=== PATIENT | female | born 2000 | race Caucasian/White ===

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

== ENCOUNTER → 2018-06-06 | Outpatient (REF) | payer OTHER ==
[2018-06-06 21:59] LABS: CHLAMYDIA DNA AMPLIFICATION NEGATIVE (NEGATIVE); GC DNA AMPLIFICATION NEGATIVE (NEGATIVE)
== END ==
LOC: M LAB REF 10:13
DX: R10.30 Lower abdominal pain, unspecified (principal)
CPT/HCPCS: 87186

== ENCOUNTER → 2018-06-10 | Outpatient (CLI) | payer OTHER | LOC: M RAD 13:42 | DX: R10.30 Lower abdominal pain, unspecified (principal) | CPT/HCPCS: 76856 ==

== ENCOUNTER 2018-10-25 17:09 | Emergency (ER) | payer OTHER ==
[~2018-10-25] VITALS: Ht 170.2 cm; Wt 90.9 kg
[2018-10-25] MEDS ORDERED: NS 1,000 ML IV ONE (18:45)
[2018-10-25] MEDS ORDERED: ONDANSETRON 4MG/2ML VIAL (J2405) IV ONE (18:45)
[2018-10-25] MEDS: MORPHINE 2 MG/ML 1ML SYRINGE (J2270) IV PRN ×2 (18:51→19:32)
[2018-10-25 18:54] LABS: BASO % 0.2 % (0.0-1.0); EOS # 0.2 10^3/uL (0.0-0.50); EOS % 1.2 % (0.0-3.0); HEMATOCRIT 43.8 % (36.0-47.0); HEMOGLOBIN 14.3 g/dl (12.0-15.5); LYMPH # 2.5 10^3/uL (1.5-6.5); LYMPH % 16.3 % (24.0-44.0); MEAN CORPUSCULAR HEMOGLOBIN 28.9 pg (27.0-33.0); MEAN CORPUSCULAR HGB CONC 32.6 g/dl (32.0-36.5); MEAN CORPUSCULAR VOLUME 88.7 fl (80.0-96.0); MONO # 1.2 10^3/uL (0.0-0.8); MONO % 7.6 % (0.0-5.0); NEUTROPHILS # 11.6 10^3/uL (1.8-7.7); NEUTROPHILS % 74.2 % (36.0-66.0); PLATELET COUNT, AUTOMATED 270 10^3/uL (150-450); RED BLOOD COUNT 4.94 10^6/uL (4.00-5.40); WHITE BLOOD COUNT 15.6 10^3/uL (4.0-10.0)
[2018-10-25 19:15] LABS: BLOOD UREA NITROGEN 13 MG/DL (7-18); CALCIUM LEVEL 8.9 MG/DL (8.5-10.1); CARBON DIOXIDE LEVEL 25 MEQ/L (21-32); CHLORIDE LEVEL 106 MEQ/L (98-107); GLUCOSE, FASTING 73 MG/DL (70-100); POTASSIUM SERUM 3.6 MEQ/L (3.5-5.1); SODIUM LEVEL 139 MEQ/L (136-145)
[2018-10-25] MEDS ORDERED: ISOVUE-370 76% 100ML VIAL (Q9967) As Ordered ONE (19:30)
[2018-10-25 19:54] VITALS: BP 119/75
--- NOTE | 2018-10-25 19:54 | REP ---
Clinical: Right lower quadrant pain. Technique: Axial contrast enhanced images from the lung bases to the pubic symphysis using 100 ml Isovue 370 intravenous contrast material with coronal and sagittal re-formations. Findings: Lung bases are clear. Visualized heart and pericardium normal. Liver, spleen, pancreas, gallbladder, bilateral adrenal glands and kidneys are normal. The enteric system is without obstruction or acute inflammatory process. Normal terminal ileum and appendix are identified in the right lower quadrant. Pelvis demonstrates normal bladder and age-appropriate uterus/adnexa. No ascites. No free air. No adenopathy. Abdominal aorta without aneurysm. Musculoskeletal structures are intact without focal osseous abnormality. Impression: No acute abdominopelvic pathology appreciated. Normal right lower quadrant and appendix. No free fluid, focal adenopathy, or ascites. Electronically Signed by Gaurav Hu MD 10/25/2018 07:45 P
== END 2018-10-25 20:12 | disposition home or self-care (01) ==
LOC: M ED 17:09
DX: N94.0 Mittelschmerz (principal)
CPT/HCPCS: 74177; 80048; 81001; 81025; 83605; 85025; 87086; 96361; 96374; 96375; 96376; 99284; J2270; J2405; Q9967

== ENCOUNTER → 2018-10-25 | Outpatient (REF) | payer OTHER ==
[~2018-10-25] MED LIST: DOXY100C37 PO; IBUP-1022 PO
== END ==
LOC: M LAB REF 18:51
PROVIDERS: ATTEND Physician Assistant Medical
DX: R10.9 Unspecified abdominal pain (principal)

== ENCOUNTER → 2018-11-29 | Outpatient (REF) | payer OTHER ==
[2018-11-29 19:08] LABS: CHLAMYDIA DNA AMPLIFICATION NEGATIVE (NEGATIVE); GC DNA AMPLIFICATION NEGATIVE (NEGATIVE)
== END ==
LOC: M SFHCWAGY 16:54
PROVIDERS: ATTEND Nurse Practitioner Women's Health
DX: Z11.3 Encounter for screening for infections with a predominantly sexual mode of transmission (principal)

== ENCOUNTER → 2019-06-17 | Outpatient (REF) | payer OTHER | LOC: M LAB REF 19:08 | PROVIDERS: ATTEND Physician Assistant Medical | DX: R35.0 Frequency of micturition (principal); R39.15 Urgency of urination ==

== ENCOUNTER → 2019-06-30 | Outpatient (REF) | payer OTHER ==
[2019-06-30 13:51] LABS: URINE PREG TEST NEGATIVE (NEGATIVE)
[2019-06-30 14:05] LABS: APPEARANCE, URINE CLEAR (CLEAR); BACTERIA, URINE AUTO NEGATIVE (NEGATIVE); BILIRUBIN, URINE AUTO NEGATIVE (NEGATIVE); BLOOD, URINE BLOOD NEGATIVE (NEGATIVE); COLOR, URINE YELLOW (YELLOW); GLUCOSE, URINE (UA) AUTO NEGATIVE (NEGATIVE); KETONE, URINE AUTO NEGATIVE (NEGATIVE); LEUKOCYTE ESTERASE, URINE AUTO NEGATIVE (NEGATIVE); MUCUS, URINE SMALL (NEGATIVE); NITRITE, URINE AUTO NEGATIVE (NEGATIVE); PROTEIN, URINE AUTO NEGATIVE (NEGATIVE); RBC, URINE AUTO 0 /HPF (0-3); SPECIFIC GRAVITY URINE AUTO 1.025 (1.002-1.035); SQUAMOUS EPITHELIAL CELL UR AU 6 /HPF (0-6); UROBILINOGEN, URINE AUTO 0.2 mg/dL (0.0-2.0); WBC, URINE AUTO 1 /HPF (0-3)
== END ==
LOC: M SMT 13:16
PROVIDERS: ATTEND Nurse Practitioner Family
DX: R35.0 Frequency of micturition (principal)

== ENCOUNTER → 2019-08-17 | Outpatient (CLI) | payer OTHER ==
--- NOTE | 2019-08-18 08:02 | REP ---
REASON: Cough. FINDINGS: The superior mediastinal structures are midline. The cardiac silhouette is unremarkable in size, shape, and position. The diaphragmatic surfaces of the lungs are regular, and the costophrenic angles are clear. The pulmonary lackey are clear. The imaged osseous structures are intact. IMPRESSION: There is no acute cardiopulmonary disease. Unreviewed
== END ==
LOC: M ADAMS 14:24
PROVIDERS: ATTEND Physician Assistant
DX: R05 Cough (principal); R50.9 Fever, unspecified

== ENCOUNTER 2019-10-22 12:13 | Inpatient (IN) | payer OTHER ==
[~2019-10-22] VITALS: Ht 170.2 cm; Wt 90.1 kg
[2019-10-22 12:55] LABS: BASO % 0.4 % (0.0-1.0); EOS % 0.4 % (0.0-3.0); HEMATOCRIT 46.5 % (36.0-47.0); HEMOGLOBIN 15.6 g/dl (12.0-15.5); LYMPH # 0.4 10^3/uL (1.5-5.0); LYMPH % 13.9 % (24.0-44.0); MEAN CORPUSCULAR HEMOGLOBIN 28.9 pg (27.0-33.0); MEAN CORPUSCULAR HGB CONC 33.5 g/dl (32.0-36.5); MEAN CORPUSCULAR VOLUME 86.3 fl (80.0-96.0); MONO # 0.1 10^3/uL (0.0-0.8); MONO % 2.6 % (0.0-5.0); NEUTROPHILS # 2.2 10^3/uL (1.5-8.5); NEUTROPHILS % 81.2 % (36.0-66.0); PLATELET COUNT, AUTOMATED 113 10^3/uL (150-450); RED BLOOD COUNT 5.39 10^6/uL (4.00-5.40); WHITE BLOOD COUNT 2.7 10^3/uL (4.0-10.0)
[2019-10-22 13:25] LABS: ALBUMIN 3.8 GM/DL (3.2-5.2); BILIRUBIN,DIRECT 1.7 MG/DL (0.0-0.2); BILIRUBIN,TOTAL 2.4 MG/DL (0.2-1.0); TOTAL PROTEIN 6.6 GM/DL (6.4-8.2)
[2019-10-22] MEDS ORDERED: ACETAMINOPHEN 325 MG TAB PO ONE (13:30)
[2019-10-22] MEDS ORDERED: ONDANSETRON 4 MG ORAL DISINTEGRATING TAB (Q0162 PER 1MG) PO ONE (13:30)
[2019-10-22] MEDS ORDERED: PANTOPRAZOLE 40MG INJ (PROTONIX) (C9113) IV ONE (14:00)
[2019-10-22] MEDS ORDERED: NS 1,000 ML IV ONE (14:00)
[2019-10-22 14:08] LABS: APPEARANCE, URINE HAZY (CLEAR); BACTERIA, URINE AUTO NEGATIVE (NEGATIVE); BILIRUBIN, URINE AUTO 2+ (NEGATIVE); BLOOD, URINE BLOOD NEGATIVE (NEGATIVE); COLOR, URINE AMBER (YELLOW); GLUCOSE, URINE (UA) AUTO 1+ mg/dL (NEGATIVE); KETONE, URINE AUTO 1+ mg/dL (NEGATIVE); LEUKOCYTE ESTERASE, URINE AUTO NEGATIVE (NEGATIVE); MUCUS, URINE LARGE (NEGATIVE); NITRITE, URINE AUTO NEGATIVE (NEGATIVE); PROTEIN, URINE AUTO 2+ mg/dL (NEGATIVE); RBC, URINE AUTO 0 /HPF (0-3); SPECIFIC GRAVITY URINE AUTO 1.057 (1.002-1.035); SQUAMOUS EPITHELIAL CELL UR AU 16 /HPF (0-6); WBC, URINE AUTO 8 /HPF (0-3)
[2019-10-22 14:36] LABS: INR 1.15; PROTHROMBIN TIME 14.4 SECONDS (11.8-14.0)
[2019-10-22 14:37] LABS: PARTIAL THROMBOPLASTIN TIME 34.5 SECONDS (25.0-38.4)
[2019-10-22 14:39] LABS: MONO REFLEX EBV COMP NEGATIVE (NEGATIVE)
[2019-10-22 14:52] LABS: ACETAMINOPHEN LEVEL 21.2 UG/ML (10.0-30.0)
--- NOTE | 2019-10-22 15:30 | REP ---
Acute abdominal series: Four views. History: Vomiting. Chest discomfort. Comparison study August 17, 2019. Findings: Upright chest radiograph is normal. There is no evidence of infiltrate or free subdiaphragmatic air. Heart is not enlarged. Supine and erect views of the abdomen demonstrate a normal bowel gas pattern. An IUD is noted in the central pelvis. Psoas margins and flank stripes are intact. No mass, organomegaly or pathologic calcification is seen. Impression: Negative acute abdominal series. IUD in place. Electronically Signed by Brennan Bradford MD 10/22/2019 03:21 P
[2019-10-22] MEDS ORDERED: ONDANSETRON 4MG/2ML VIAL (J2405) IV ONE (15:45)
--- NOTE | 2019-10-22 15:48 | REP ---
RIGHT UPPER QUADRANT SONOGRAPHY: History: Elevated liver enzymes. Findings: Exam quality is inhibited to some degree by patient body habitus and bowel gas. Scanning through the right upper quadrant of the abdomen demonstrates marked thickening and edema of the gallbladder wall, up to 8 mm in thickness. No stone is seen although the lumen is partially collapsed. Common bile duct is normal measuring 0.5 cm in greatest diameter. Increased echogenicity is seen throughout the liver consistent with fatty infiltration. No focal liver lesion is seen. The pancreas is obscured by abdominal gas. A normal caliber aorta is observed. There is no evidence of ascites. No right renal abnormality. Right kidney measures 11.1 x 4.7 x 3.7 cm. Impression: Probable mild fatty infiltration of the liver. Marked gallbladder wall thickening, 8 mm. No definite stone. Normal CBD. Pancreas is obscured by abdominal gas. Electronically Signed by Brennan Bradford MD 10/22/2019 07:37 P
[2019-10-22] MEDS ORDERED: ACETYLCYSTEINE 0 MG in D5W 1,000 ML IV ONE (16:30)
[2019-10-22] MEDS ORDERED: ACETYLCYSTEINE 0 MG in D5W 500 ML IV ONE (16:30)
[2019-10-22] MEDS ORDERED: ACETYLCYSTEINE 0 MG in D5W 250 ML IV ONE (16:30)
[2019-10-22 16:58] LABS: CK-MB VALUE MASS 1.1 NG/ML (<3.6); CPK CREATINE PHOSPHOKINASE 172 U/L (26-192); MB/CK RELATIVE INDEX 0.64 (< OR =4); SALICYLATE LEVEL < 1.7 MG/DL (5.0-30.0); TROPONIN I < 0.02 NG/ML (< 0.10)
[2019-10-22] MEDS ORDERED: ACETYLCYSTEINE IV ONE (17:15)
[2019-10-22] MEDS ORDERED: ACETYLCYSTEINE 9,000 MG in D5W 1,000 ML IV ONE (17:15)
[2019-10-22] MEDS ORDERED: D5W IV ONE (17:15)
[2019-10-22] MEDS ORDERED: ACETYLCYSTEINE 4,600 MG in D5W 500 ML IV ONE (17:15)
[2019-10-22] MEDS ORDERED: NICOTINE 21MG/24HR 1 EA TRANSDERMAL TD ONE (17:30)
[2019-10-22] MEDS ORDERED: METOCLOPRAMIDE INJ 10MG/2ML VIAL (J2765) IV ONE (19:30)
--- NOTE | 2019-10-22 19:57 | HPEPDOC ---
[facility] Medical History & Physical Date of Admission Oct 22, 2019 Date of Service: Oct 22, 2019 Attending Physician: SEDRICK THOMAS MD History and Physical CHIEF COMPLAINT: Nausea, chest pain HISTORY OF PRESENT ILLNESS: 18 y.o female w/ no significant PMH presents from home w/ pleuritic chest pain & nausea. She has been having pleuritic chest pain for the past few days, has been taking high dose Tylenol and started experiencing nausea w/ dry heaving today. In the ED, she is found to have elevat ed Acetaminophen level (although it was drawn after she had already received Tylenol in the ED) along with elevated LFTs. Abdominal ultrasound showed fatty liver, poison control was called, NAC recommended w/ admission for monitoring. Patient is currently comfortable in bed, only reports the sharp pleuritic chest pain, no additional complaints at this time. She denies any SOB, N/V/D or abdominal pain. 10 point review of system is negative except for above PAST MEDICAL HISTORY: 1. None PAST SURGICAL HISTORY: 1. None SOCIAL HISTORY: smokes 1-2 PPD social alcohol use denies drug use FAMILY HISTORY: no FH of cancer or heart disease ALLERGIES: Please see below. HOME MEDICATIONS: Please see below. PHYSICAL EXAMINATION: VITAL SIGNS: See below GENERAL APPEARANCE: no distress HEENT: moist mucus membranes CARDIOVASCULAR: S1, S2, no murmurs. LUNGS: clear to auscultation ABDOMEN: soft, non-tender, non-distended, +BS EXTREMITIES: ROM intact NEUROLOGICAL: no focal deficits PSYCHIATRIC: calm LABORATORY DATA: See below. IMAGING: Liver US showing fatty infiltration MICROBIOLOGY: Please see below. ASSESSMENT: 18 y.o female w/o any PMH is being admitted for acetaminophen toxicity. PLAN: 1. Acetaminophen toxicity - accidental, LFTS & Acetaminophen levels mildly elevated, poison control called by ED, NAC recommended, repeat CMP & Acetaminophen levels, if LFTs downtrending & Acetaminophen level <10, will discontinue NAC. Admit for observation, tentatively plan for discharge tomorrow if LFTs downtrending. Vital Signs Vital Signs Date Time Temp Pulse Resp B/P (MAP) Pulse Ox O2 Delivery O2 Flow Rate FiO2 10/22/19 15:59 97.2 59 59 125/86 (99) 15 Room Air Laboratory Data Labs 24H Laboratory Tests 2 10/22/19 12:42: Immature Granulocyte % (Auto) 1.5, Neutrophils (%) (Auto) 81.2H, Lymphocytes (%) (Auto) 13.9L, Monocytes (%) (Auto) 2.6, Eosinophils (%) (Auto) 0.4, Basophils (%) (Auto) 0.4, Neutrophils # (Auto) 2.2, Lymphocytes # (Auto) 0.4L, Monocytes # (Auto) 0.1, Eosinophils # (Auto) 0.0, Basophils # (Auto) 0.0, Nucleated Red Blood Cells % (auto) 0.0, Total Bilirubin 2.4H, Direct Bilirubin 1.7H, Aspartate Amino Transf (AST/SGOT) 315H, Alanine Aminotransferase (ALT/SGPT) 217H, Alkaline Phosphatase 275H, Total Protein 6.6, Albumin 3.8, Albumin/Globulin Ratio 1.36, Lipase 43L 10/22/19 12:45: POC Glucose (Misc Panel) 118H, POC Sodium (Misc Panel) 139, POC Potassium (Misc Panel) 3.8, POC Chloride (Misc Panel) 106, POC Total CO2 (Misc Panel) 21.0L, POC Blood Urea Nitrogen (Misc Panel 14, POC Ionized Calcium (Misc Panel) 4.7, POC Creatinine (Misc Panel) 0.7, POC Hematocrit (Misc Panel) 45.0 10/22/19 13:39: Urine Color CHANDU, Urine Appearance HAZY, Urine pH 5.0, Urine Specific [place] 1.057, Urine Protein 2+H, Urine Glucose (Auto)(UA) 1+H, Urine Ketones (Auto) 1+H, Urine Blood NEGATIVE, Urine Nitrite NEGATIVE, Urine Bilirubin 2+H, Urine Urobilinogen 4.0H, Urine Leukocyte Esterase (Auto) NEGATIVE, Urine WBC (Auto) 8 H, Urine RBC (Auto) 0, Urine Hyaline Casts (Auto) 0, Urine Bacteria (Auto) NEGATIVE, Urine Squamous Epithelial Cells 16, Urine Mucus (Auto) LARGE, Urine Sperm (Auto) 10/22/19 14:10: Prothrombin Time 14.4H, Prothromb Time International Ratio 1.15, Activated Partial Thromboplast Time 34.5, Total Creatine Kinase 172, Creatine Kinase MB 1.1, Creatine Kinase MB Relative Index 0.64, Troponin I < 0.02, Salicylates Level < 1.7L, Acetaminophen Level 21.2, Monoscreen NEGATIVE 10/22/19 14:13: POC Beta HCG, Quantitative < 5.0 CBC/BMP Laboratory Tests 10/22/19 12:42 Home Medications No Active Prescriptions or Reported Meds Allergies Coded Allergies: No Known Allergies (Unverified , 10/22/19) A-FIB/CHADSVASC A-FIB History Current/History of A-Fib/PAF?: No SEDRICK THOMAS MD Oct 22, 2019 19:57
[2019-10-22 20:00] VITALS: BP 142/90
[2019-10-22 20:17] LABS: ACETAMINOPHEN LEVEL 15.2 UG/ML (10.0-30.0); ALBUMIN 3.1 GM/DL (3.2-5.2); ALT/SGPT 199 U/L (12-78); BILIRUBIN,TOTAL 2.8 MG/DL (0.2-1.0); BLOOD UREA NITROGEN 12 MG/DL (7-18); CALCIUM LEVEL 7.8 MG/DL (8.5-10.1); CARBON DIOXIDE LEVEL 19 MEQ/L (21-32); CHLORIDE LEVEL 110 MEQ/L (98-107); CREATININE FOR GFR 0.71 MG/DL (0.55-1.30); GLUCOSE, FASTING 127 MG/DL (70-100); POTASSIUM SERUM 4.6 MEQ/L (3.5-5.1); SODIUM LEVEL 140 MEQ/L (136-145); TOTAL PROTEIN 6.2 GM/DL (6.4-8.2)
[2019-10-22 23:59] VITALS: BP 135/95
[2019-10-23 04:00] VITALS: BP 144/89
--- NOTE | 2019-10-23 05:53 | ECGEPIP ---
[facility] - ED Test Date: 2019-10-22 Pat Name: ADRIANNE CLEMENT Department: Room: - Gender: Female [employer]: : 2000 Requested By: KENNEDY Stevens PA-C Order Number: [id number] Reading MD: Denis Fay Measurements Intervals [place] Rate: 54 P: 17 LA: 160 QRS: 21 QRSD: 90 T: -7 QT: 418 QTc: 397 Interpretive Statements SINUS BRADYCARDIA WITH MARKED SINUS ARRHYTHMIA NSTTW ABNORMALITIES NO PRIORS FOR COMPARISON Electronically Signed on 10-23-2019 5:53:19 EST by Denis Fay
[2019-10-23 06:11] LABS: HEMATOCRIT 40.4 % (36.0-47.0); HEMOGLOBIN 13.9 g/dl (12.0-15.5); MEAN CORPUSCULAR HEMOGLOBIN 29.1 pg (27.0-33.0); MEAN CORPUSCULAR HGB CONC 34.4 g/dl (32.0-36.5); MEAN CORPUSCULAR VOLUME 84.7 fl (80.0-96.0); PLATELET COUNT, AUTOMATED 101 10^3/uL (150-450); RED BLOOD COUNT 4.77 10^6/uL (4.00-5.40); WHITE BLOOD COUNT 2.2 10^3/uL (4.0-10.0)
[2019-10-23 06:40] LABS: ALBUMIN 3.1 GM/DL (3.2-5.2); ALT/SGPT 208 U/L (12-78); BILIRUBIN,TOTAL 2.6 MG/DL (0.2-1.0); BLOOD UREA NITROGEN 8 MG/DL (7-18); CALCIUM LEVEL 8.1 MG/DL (8.5-10.1); CARBON DIOXIDE LEVEL 23 MEQ/L (21-32); CHLORIDE LEVEL 104 MEQ/L (98-107); CREATININE FOR GFR 0.64 MG/DL (0.55-1.30); GLUCOSE, FASTING 89 MG/DL (70-100); MAGNESIUM LEVEL 1.7 MG/DL (1.8-2.4); POTASSIUM SERUM 3.6 MEQ/L (3.5-5.1); SODIUM LEVEL 134 MEQ/L (136-145); TOTAL PROTEIN 6.3 GM/DL (6.4-8.2)
[2019-10-23 07:04] VITALS: BP 170/87
[2019-10-23 07:29] VITALS: BP 138/86
[2019-10-23] MEDS ORDERED: POTASSIUM CHLORIDE 10 MEQ SR TABLET PO ONE (07:30)
[2019-10-23] MEDS: MAG SULF 1GM/100ML (MAG RUN) 1 GM in IV 1 EA IV SCH ×2 (07:46→08:51)
[2019-10-23] MEDS ORDERED: KETOROLAC 30 MG/ML VIAL (J1885) IV ONE (08:45)
[2019-10-23 11:52] LABS: ALBUMIN 3.2 GM/DL (3.2-5.2); BILIRUBIN,DIRECT 1.9 MG/DL (0.0-0.2); BILIRUBIN,TOTAL 2.8 MG/DL (0.2-1.0); TOTAL PROTEIN 6.4 GM/DL (6.4-8.2)
[2019-10-23 12:00] VITALS: BP 122/72
[2019-10-23 16:00] VITALS: BP 134/78
[2019-10-23 16:32] LABS: ALBUMIN 3.4 GM/DL (3.2-5.2); BILIRUBIN,DIRECT 2.6 MG/DL (0.0-0.2); BILIRUBIN,TOTAL 3.2 MG/DL (0.2-1.0); TOTAL PROTEIN 6.2 GM/DL (6.4-8.2)
[2019-10-23 20:00] VITALS: BP 140/74
--- NOTE | 2019-10-23 20:03 | IPNPDOC ---
Date Seen The patient was seen on 10/23/19. Progress Note HISTORY OF PRESENT ILLNESS: 18 y.o female w/ no significant PMH presents from home w/ pleuritic chest pain & nausea. She has been having pleuritic chest pain for the past few days, has been taking high dose Tylenol and started experiencing nausea w/ dry heaving today. In the ED, she is found to have elevated Acetaminophen level (although it was drawn after she had already received Tylenol in the ED) along with elevated LFTs. Abdominal ultrasound showed fatty liver, poison control was called, NAC recommended w/ admission for monitoring. Patient is currently comfortable in bed, only reports the sharp pleuritic chest pain, no additional complaints at this time. She denies any SOB, N/V/D or abdominal pain. 10/23/19 Patient in bed, continues to have pleuritic chest pain & nausea, no additional complaints. 10 point review of system is negative except for above PHYSICAL EXAMINATION: VITAL SIGNS: See below GENERAL APPEARANCE: no distress HEENT: moist mucus membranes CARDIOVASCULAR: S1, S2, no murmurs. LUNGS: clear to auscultation, reproducible mid sternal chest pain ABDOMEN: soft, non-tender, non-distended, +BS EXTREMITIES: ROM intact NEUROLOGICAL: no focal deficits PSYCHIATRIC: calm LABORATORY DATA: See below. MICROBIOLOGY: Please see below. ASSESSMENT: 18 y.o female w/o any PMH is being admitted for acetaminophen toxicity. PLAN: 1. Acetaminophen toxicity - Treated w/ NAC, levels have normalized, LFTs remain elevated, liver US showing thickened gallbladder wall, no gallstone, duct dilation or obstruction noted, symptoms & labs concerning for biliary disease, repeat liver US. Will keep patient overnight, repeat LFTs in the morning. VS, I&O, 24H, Fishbone Vital Signs/I&O Vital Signs Date Time Temp Pulse Resp B/P (MAP) Pulse Ox O2 Delivery O2 Flow Rate FiO2 10/23/19 16:00 98.8 89 18 134/78 (96) 95 Room Air I&O- Last 24 Hours up to 6 AM 10/23/19 06:00 Intake Total 1620 ml Output Total 0 ml Balance 1620 ml Laboratory Data 24H LABS Laboratory Tests 2 10/23/19 05:13: Nucleated Red Blood Cells % (auto) 0.0, Anion Gap 7L, Calcium Level 8.1L, Magnesium Level 1.7L, Total Bilirubin 2.6H, Aspartate Amino Transf (AST/SGOT) 211H, Alanine Aminotransferase (ALT/SGPT) 208H, Alkaline Phosphatase 269H, Total Protein 6.3L, Albumin 3.1L, Albumin/Globulin Ratio 0.97L, Acetaminophen Level < 2.0L 10/23/19 10:53: Total Bilirubin 2.8H, Aspartate Amino Transf (AST/SGOT) 211H, Alanine Aminotransferase (ALT/SGPT) 212H, Alkaline Phosphatase 269H, Total Protein 6.4, Albumin 3.2, Albumin/Globulin Ratio 1.00, Direct Bilirubin 1.9H 10/23/19 15:43: Total Bilirubin 3.2H, Aspartate Amino Transf (AST/SGOT) 246H, Alanine Aminotransferase (ALT/SGPT) 240H, Alkaline Phosphatase 276H, Total Protein 6.2L, Albumin 3.4, Albumin/Globulin Ratio 1.21, Direct Bilirubin 2.6H CBC/BMP Laboratory Tests 10/23/19 05:13 SEDRICK THOMAS MD Oct 23, 2019 20:03
--- NOTE | 2019-10-23 20:34 | REPVR ---
PROCEDURE INFORMATION: Exam: US Abdomen Limited, Right Upper Quadrant Exam date and time: 10/23/2019 7:52 PM Age: 18 years old Clinical indication: Abdominal pain; Epigastric; Additional info: Concern for cholecystitis TECHNIQUE: Imaging protocol: Real-time ultrasound of the abdomen with image documentation. Examination was focused on the right upper quadrant. COMPARISON: LIVER US 10/22/2019 2:54 PM FINDINGS: Liver: The liver echotexture is increased likely due to fatty infiltration. Gallbladder: The gallbladder wall is thickened measuring 1 cm in width. There is a sonographic Mcallister sign. There may be sludge within the gallbladder. Common bile duct: The common bile duct is not dilated measuring 0.46 cm. Pancreas: Pancreas is obscured by bowel gas. Right kidney: The right kidney is normal appearance measuring 11.3 cm in length. IMPRESSION: There is gallbladder wall thickening and probable sludge within the gallbladder without definite calculi identified however the examination is limited. There is a sonographic Mcallister sign therefore findings are likely due to cholecystitis. Electronically signed by: Neida Ac On 10/23/2019 20:34:01 PM
[2019-10-24] VITALS: BP 150/90
[2019-10-24 04:00] VITALS: BP 134/81
[2019-10-24 05:58] LABS: HEMATOCRIT 39.3 % (36.0-47.0); HEMOGLOBIN 13.3 g/dl (12.0-15.5); MEAN CORPUSCULAR HEMOGLOBIN 28.5 pg (27.0-33.0); MEAN CORPUSCULAR HGB CONC 33.8 g/dl (32.0-36.5); MEAN CORPUSCULAR VOLUME 84.2 fl (80.0-96.0); PLATELET COUNT, AUTOMATED 111 10^3/uL (150-450); RED BLOOD COUNT 4.67 10^6/uL (4.00-5.40); WHITE BLOOD COUNT 3.4 10^3/uL (4.0-10.0)
[2019-10-24 06:18] LABS: ALBUMIN 3.4 GM/DL (3.2-5.2); ALT/SGPT 266 U/L (12-78); BILIRUBIN,DIRECT 2.1 MG/DL (0.0-0.2); BILIRUBIN,TOTAL 2.6 MG/DL (0.2-1.0); BLOOD UREA NITROGEN 7 MG/DL (7-18); CALCIUM LEVEL 8.5 MG/DL (8.5-10.1); CARBON DIOXIDE LEVEL 22 MEQ/L (21-32); CHLORIDE LEVEL 106 MEQ/L (98-107); CREATININE FOR GFR 0.63 MG/DL (0.55-1.30); GLUCOSE, FASTING 79 MG/DL (70-100); MAGNESIUM LEVEL 2.1 MG/DL (1.8-2.4); PHOSPHORUS LEVEL 2.2 MG/DL (2.5-4.9); POTASSIUM SERUM 3.9 MEQ/L (3.5-5.1); SODIUM LEVEL 135 MEQ/L (136-145); TOTAL PROTEIN 6.3 GM/DL (6.4-8.2)
[2019-10-24 08:00] VITALS: BP 139/92
[2019-10-24 08:19] LABS: HEPATITIS B SURFACE ANTIGEN NEGATIVE (NEGATIVE)
[2019-10-24] MEDS: K-PHOS NEUTRAL 250MG TABLET (SOD.PHOSPHATE/POT.PHOSPHATE) PO SCH ×3 (08:27→20:07)
[2019-10-24 08:46] LABS: HEPATITIS C VIRUS ABY INDEX < 0.0 INDEX (<0.8)
[2019-10-24 08:47] LABS: HEPATITIS B CORE ANTIBODY IGM NEGATIVE (NEGATIVE)
[2019-10-24 08:49] LABS: HEPATITIS A ANTIBODY IGM NEGATIVE (NEGATIVE)
--- NOTE | 2019-10-24 11:12 | IPNPDOC ---
Date Seen The patient was seen on 10/24/19. Progress Note HISTORY OF PRESENT ILLNESS: 18 y.o female w/ no significant PMH presents from home w/ pleuritic chest pain & nausea. She has been having pleuritic chest pain for the past few days, has been taking high dose Tylenol and started experiencing nausea w/ dry heaving today. In the ED, she is found to have elevated Acetaminophen level (although it was drawn after she had already received Tylenol in the ED) along with elevated LFTs. Abdominal ultrasound showed fatty liver, poison control was called, NAC recommended w/ admission for monitoring. Patient is currently comfortable in bed, only reports the sharp pleuritic chest pain, no additional complaints at this time. She denies any SOB, N/V/D or abdominal pain. 10/23/19 Patient in bed, continues to have pleuritic chest pain & nausea, no additional complaints. 10/24/19 Patient seen in the morning, comfortable, had multiple episodes of vomiting overnight, reports epigastric pain at this time, no other complaints. 10 point review of system is negative except for above PHYSICAL EXAMINATION: VITAL SIGNS: See below GENERAL APPEARANCE: no distress HEENT: moist mucus membranes CARDIOVASCULAR: S1, S2, no murmurs. LUNGS: clear to auscultation ABDOMEN: soft, minimally tender to palpation, non-distended, +BS EXTREMITIES: ROM intact NEUROLOGICAL: no focal deficits PSYCHIATRIC: calm LABORATORY DATA: See below. MICROBIOLOGY: Please see below. ASSESSMENT: 18 y.o female w/o any PMH is being admitted for acetaminophen toxicity. PLAN: 1. Abnormal LFTs. Patient's clinical, lab and imaging findings are suggestive of acute cholecystitis, Gen. surgery consulted, pain control as needed. 2. Acetaminophen toxicity. Treated with neck, no levels within normal, LFTs remain elevated but likely due to a different etiology. VS, I&O, 24H, Fishbone Vital Signs/I&O Vital Signs Date Time Temp Pulse Resp B/P (MAP) Pulse Ox O2 Delivery O2 Flow Rate FiO2 10/24/19 08:00 97.4 90 13 139/92 (108) 96 Room Air I&O- Last 24 Hours up to 6 AM 10/24/19 06:00 Intake Total 830 ml Output Total 0 ml Balance 830 ml Laboratory Data 24H LABS Laboratory Tests 2 10/23/19 15:43: Total Bilirubin 3.2H, Direct Bilirubin 2.6H, Aspartate Amino Transf (AST/SGOT) 246H, Alanine Aminotransferase (ALT/SGPT) 240H, Alkaline Phosphatase 276H, Total Protein 6.2L, Albumin 3.4, Albumin/Globulin Ratio 1.21 10/24/19 05:10: Total Bilirubin 2.6H, Direct Bilirubin 2.1H, Aspartate Amino Transf (AST/SGOT) 290H, Alanine Aminotransferase (ALT/SGPT) 266H, Alkaline Phosphatase 307H, Total Protein 6.3L, Albumin 3.4, Albumin/Globulin Ratio 1.17, Nucleated Red Blood Cells % (auto) 0.0, Anion Gap 7L, Calcium Level 8.5, Phosphorus Level 2.2L, Magnesium Level 2.1 CBC/BMP Laboratory Tests 10/24/19 05:10 SEDRICK THOMAS MD Oct 24, 2019 11:12
--- NOTE | 2019-10-24 11:34 | CR ---
DATE OF CONSULTATION: 10/24/2019 REASON FOR CONSULTATION: Question of cholecystitis. BRIEF HISTORY OF PRESENT ILLNESS: The patient presents to the emergency room with a question of hepatitis associated with Tylenol overdose. She has an elevated bilirubin, aspartate aminotransferase (AST), alanine transaminase (ALT), and alkaline phosphatase (alk phos) and was admitted for Tylenol levels that were significantly high and the concern was for Tylenol poisoning. She has had a negative mononucleosis (monos) screen, negative hepatitis workup, but her cytomegalovirus (CMV) and [place] virus (EBV) workup is still pending at this time. In any case, she has been complaining of pleuritic chest pain on the right-hand side. She has been complaining of some nausea and had some dry heaving on admission. Since that time has had some minimal nausea but really has been advanced or given an increasing diet at this time. She was not treated with antibiotics. Has not been febrile. Does not have any history of biliary or colic gallstones, etc., and specifically CAT scan previously last year did not reveal any gallstones or thickening of the gallbladder wall. The liver function tests then prompted an ultrasound which showed gallbladder wall thickening, no gallstones, question of possible sludge. Was admitted, given IV fluids and observed. Her liver function tests (LFTs) remained elevated and really have not changed significantly over 5 days. She has not had any elevation of her amylase or lipase, and overall clinically she seems to be making some slight but slow improvement of her pleuritic chest pain compared to yesterday and the day before, and she is moving around without significant complaint at this time. PAST MEDICAL HISTORY: Her past medical history reveals no significant medical or past surgical history. She is a smoker but does not use drugs. PHYSICAL EXAM: She does not appear to be in any discomfort with moving around in bed or sitting up or lying down. HEENT is unremarkable. Neck: Supple without adenopathy. Lungs are clear. Heart is regular. Abdomen: Soft, nondistended, nontender. I am not really appreciating any significant right upper quadrant tenderness at this time. Although, she states that this is where she is sore. IMPRESSION/PLAN: The patient has a low white count and she has church elevation of her liver function tests. If typically she would have an acute cholecystitis, I would anticipate an elevated white count, fevers with the severity of the liver function test abnormality in either it would be getting worse or infection or resolving after a few days, and given that neither have occurred and the liver function tests are much more consistent with possible hepatitis either chemical, viral etc. and she has been afebrile for several days, I would anticipate this is less likely acute cholecystitis. It is probably reactive inflammation of the gallbladder wall associated with the inflammation of the liver itself, and I anticipate this may resolve over time. From a surgical standpoint, no surgical intervention is necessary however, and thus, I would recommend start her on a clear liquid diet and will advance her diet as tolerated over the next 24-48 hours, and if she tolerates this she can be discharged home from a surgical standpoint. However, if further workup of the hepatitis issue needs to be performed I would recommend a GI consult for this with their recommendations. Once her liver function tests have returned to normal that is when I would recommend starting to perform any further workup of her gallbladder area, and I would be glad to see her as an outpatient in a couple weeks to reevaluate her.
[2019-10-24 12:00] VITALS: BP 141/88
[2019-10-24 14:09] LABS: CYTOMEGALOVIRUS IgG ANTIBODY <0.60 U/mL (0.00-0.59); CYTOMEGALOVIRUS IgM ANTIBODY <30.0 AU/mL (0.0-29.9); EBV AB TO NUCLEAR ANTIGEN 71.3 U/mL (0.0-17.9); EBV VIRAL CAPSID AG IgM <36.0 U/mL (0.0-35.9)
[2019-10-24] MEDS ORDERED: SLF 3 ML SYR IV PRN (15:45)
[2019-10-24 16:00] VITALS: BP 169/104
[2019-10-24] MEDS ORDERED: ACETAMINOPHEN TAB 650MG DOSE (2X325MG) PO PRN (17:15)
[2019-10-24] MEDS ORDERED: ACETAMINOPHEN 325 MG TAB As Ordered ONE (17:32)
[2019-10-24 20:00] VITALS: BP 133/84
[2019-10-24] MEDS: SLF 3 ML SYR IV SCH (20:07)
[2019-10-24] MEDS ORDERED: ONDANSETRON 4MG/2ML VIAL (J2405) IV ONE (20:30)
[2019-10-25] VITALS: BP 126/89
[2019-10-25 04:00] VITALS: BP 133/84
[2019-10-25] MEDS ORDERED: ONDANSETRON 4MG/2ML VIAL (J2405) IV PRN (05:00)
[2019-10-25] MEDS: SLF 3 ML SYR IV SCH (05:10)
[2019-10-25 05:38] LABS: HEMATOCRIT 42.1 % (36.0-47.0); HEMOGLOBIN 14.1 g/dl (12.0-15.5); MEAN CORPUSCULAR HEMOGLOBIN 28.7 pg (27.0-33.0); MEAN CORPUSCULAR HGB CONC 33.5 g/dl (32.0-36.5); MEAN CORPUSCULAR VOLUME 85.7 fl (80.0-96.0); PLATELET COUNT, AUTOMATED 149 10^3/uL (150-450); RED BLOOD COUNT 4.91 10^6/uL (4.00-5.40); WHITE BLOOD COUNT 4.7 10^3/uL (4.0-10.0)
[2019-10-25 06:11] LABS: ALBUMIN 3.8 GM/DL (3.2-5.2); ALT/SGPT 238 U/L (12-78); BILIRUBIN,TOTAL 1.7 MG/DL (0.2-1.0); BLOOD UREA NITROGEN 9 MG/DL (7-18); CALCIUM LEVEL 8.8 MG/DL (8.5-10.1); CARBON DIOXIDE LEVEL 27 MEQ/L (21-32); CHLORIDE LEVEL 104 MEQ/L (98-107); CREATININE FOR GFR 0.76 MG/DL (0.55-1.30); GLUCOSE, FASTING 94 MG/DL (70-100); POTASSIUM SERUM 3.5 MEQ/L (3.5-5.1); SODIUM LEVEL 137 MEQ/L (136-145); TOTAL PROTEIN 7.4 GM/DL (6.4-8.2)
[2019-10-25 07:42] VITALS: BP 116/66
[2019-10-25] MEDS ORDERED: POTASSIUM CHLORIDE 10 MEQ SR TABLET PO ONE (08:00)
--- NOTE | 2019-10-25 21:14 | DS.PDOC ---
Discharge Summary General Date of Admission Oct 24, 2019 at 08:16 Date of Discharge 10/25/19 Attending Physician: SEDRICK THOMAS MD Discharge Summary PROCEDURES PERFORMED DURING STAY: None ADMITTING DIAGNOSES: 1. Acetaminophen toxicity, elevated liver enzymes DISCHARGE DIAGNOSES: 1. Acetaminophen toxicity, elevated liver enzymes COMPLICATIONS/CHIEF COMPLAINT: Acute Liver Disease Tylenol Overdose. HISTORY OF PRESENT ILLNESS: 18 y.o female w/o any PMH was admitted for accid ental acetaminophen toxicity, treated w/ NAC, normalization of levels within 8 hours. Patient continued to have elevated LFTs, Liver US concerning for possible cholecystitis, evaluated by General surgery, low suspicion for cholecystitis, recommend discharge w/ close follow up and repeating liver function tests in the outpatient settings. If cholecystectomy is warranted at this time, it will be arranged in the outpatient setting. Other workup for elevated LFTs has been negative. Patient is asymptomatic, tolerating diet, clinically and hemodynamically stable for discharge and outpatient follow up. HOSPITAL COURSE: As above DISCHARGE MEDICATIONS: Please see below. ALLERGIES: Please see below. PHYSICAL EXAMINATION: VITAL SIGNS: See below GENERAL APPEARANCE: no distress HEENT: moist mucus membranes CARDIOVASCULAR: S1, S2, no murmurs. LUNGS: clear to auscultation ABDOMEN: soft, non-tender, non-distended, +BS EXTREMITIES: ROM intact NEUROLOGICAL: no focal deficits PSYCHIATRIC: calm LABORATORY DATA: Please see below. IMAGING: Liver US showing fatty infiltration & possible cholecystitis PROGNOSIS: Good ACTIVITY: As tolerated DIET: Regular DISCHARGE PLAN: Follow up w/ General surgery & PCP in 1-2 weeks DISPOSITION: 01 Home, Self-Care. DISCHARGE INSTRUCTIONS: 1. As above DISCHARGE CONDITION: Stable TIME SPENT ON DISCHARGE: Greater than 24 minutes. Vital Signs/I&Os Vital Signs Date Time Temp Pulse Resp B/P (MAP) Pulse Ox O2 Delivery O2 Flow Rate FiO2 10/25/19 07:42 98.0 64 18 116/66 (83) 94 Room Air I&O- Last 24 Hours up to 6 AM 10/25/19 06:00 Intake Total 300 ml Output Total 300 ml Balance 0 ml Laboratory Data Labs 24H Laboratory Tests 2 10/25/19 04:50: Nucleated Red Blood Cells % (auto) 0.0, Anion Gap 6L, Calcium Level 8.8, Total Bilirubin 1.7H, Aspartate Amino Transf (AST/SGOT) 168H, Alanine Aminotransferase (ALT/SGPT) 238H, Alkaline Phosphatase 312H, Total Protein 7.4, Albumin 3.8, Albumin/Globulin Ratio 1.06 CBC/BMP Laboratory Tests 10/25/19 04:50 Discharge Medications No Active Prescriptions or Reported Meds Allergies Coded Allergies: No Known Allergies (Unverified , 10/22/19) SEDRICK THOMAS MD Oct 25, 2019 21:13
== END 2019-10-25 10:56 | disposition home or self-care (01) | DRG 812 ==
LOC: M ED 12:13 → M ED INP 12:14 → ENRESERV 19:01 → M PCU 19:50 → OBSVTOIN 10-24 08:16
PROVIDERS: ADMIT Internal Medicine; ATTEND Internal Medicine
DX: T39.1X1A Poisoning by 4-Aminophenol derivatives, accidental (unintentional), initial encounter (principal); F17.200 Nicotine dependence, unspecified, uncomplicated; R74.0 Nonspecific elevation of levels of transaminase and lactic acid dehydrogenase [LDH]; R07.81 Pleurodynia; R11.2 Nausea with vomiting, unspecified

== ENCOUNTER → 2021-09-21 | Outpatient (CLI) | payer OTHER ==
[~2021-09-21] MED LIST changes: +DOXY-443 PO; -DOXY100C37 PO
== END ==
LOC: M WHC 14:27
PROVIDERS: ATTEND Advanced Practice Midwife
DX: Z34.82 Encounter for supervision of other normal pregnancy, second trimester (principal); Z3A.14 14 weeks gestation of pregnancy

== ENCOUNTER → 2021-11-09 | Outpatient (CLI) | payer OTHER ==
[2021-11-09 10:18] LABS: HEMATOCRIT 35.9 % (36.0-47.0); HEMOGLOBIN 12.1 g/dl (12.0-15.5); MEAN CORPUSCULAR HEMOGLOBIN 29.7 pg (27.0-33.0); MEAN CORPUSCULAR HGB CONC 33.7 g/dl (32.0-36.5); MEAN CORPUSCULAR VOLUME 88.2 fl (80.0-96.0); PLATELET COUNT, AUTOMATED 240 10^3/uL (150-450); RED BLOOD COUNT 4.07 10^6/uL (4.00-5.40)
[2021-11-09 11:04] LABS: FREE T4 0.94 NG/DL (0.76-1.46); THYROID STIMULATING HORMONE 0.624 uIU/ML (0.358-3.740)
[2021-11-09 12:14] LABS: GC DNA AMPLIFICATION NEGATIVE (NEGATIVE)
== END ==
LOC: M PLALAB 07:16
PROVIDERS: ATTEND Obstetrics & Gynecology
DX: Z34.93 Encounter for supervision of normal pregnancy, unspecified, third trimester (principal); Z3A.26 26 weeks gestation of pregnancy

== ENCOUNTER → 2022-01-13 | Outpatient (REF) | payer OTHER ==
[~2022-01-13] MED LIST changes: +ASPI81CH33 PO; +ONE1MIS PO
== END ==
LOC: M SFHCWAGY 13:05
PROVIDERS: ATTEND Obstetrics & Gynecology
DX: Z34.93 Encounter for supervision of normal pregnancy, unspecified, third trimester (principal); Z3A.36 36 weeks gestation of pregnancy

== ENCOUNTER → 2022-01-26 | Outpatient (CLI) | payer OTHER | LOC: M LABSMTC 09:43 | PROVIDERS: ATTEND Anesthesiology | DX: Z01.812 Encounter for preprocedural laboratory examination (principal); Z20.822 Contact with and (suspected) exposure to COVID-19 ==

== ENCOUNTER 2022-01-31 07:00 | Inpatient (IN) | payer OTHER ==
[2022-01-31] VITALS (10 sets, daily range): BP systolic 118–146; BP diastolic 68–91
[~2022-01-31] VITALS: Ht 170.2 cm; Wt 93.7 kg
[2022-01-31] MEDS ORDERED: ACET-897 PO (07:27)
[2022-01-31] MEDS ORDERED: HOME MED LIST COMPLETE! XX SCH (07:30)
[2022-01-31] MEDS ORDERED: LR 1,000 ML IV ONE (08:00)
[2022-01-31] MEDS ORDERED: ceFAZolin SOD 2 GM in IV 1 EA IV ONE (08:00)
[2022-01-31 08:01] LABS: HEMOGLOBIN 13.2 g/dl (12.0-15.5); MEAN CORPUSCULAR HGB CONC 33.8 g/dl (32.0-36.5); MEAN CORPUSCULAR VOLUME 85.7 fl (80.0-96.0); PLATELET COUNT, AUTOMATED 237 10^3/uL (150-450); RED BLOOD COUNT 4.55 10^6/uL (4.00-5.40); WHITE BLOOD COUNT 13.6 10^3/uL (4.0-10.0)
[2022-01-31] MEDS ORDERED: BICITRA 30ML SOLN UDC PO ONE (08:10)
[2022-01-31] MEDS: LR 1,000 ML IV SCH ×4 (08:46→19:10)
[2022-01-31] MEDS: PRENATAL VITAMINS CHEWABLE TABLET PO SCH (09:00)
[2022-01-31] MEDS ORDERED: dexameTHASONE 4 MG/ML 1ML VIAL (J1100 PER 1MG) As Ordered ONE (09:35)
[2022-01-31] MEDS ORDERED: fentaNYL 100 MCG/2 ML INJECTION As Ordered ONE (09:35)
[2022-01-31] MEDS ORDERED: KETOROLAC 60MG 2ML VIAL As Ordered ONE (09:35)
[2022-01-31] MEDS ORDERED: ONDANSETRON 4MG/2ML VIAL As Ordered ONE (09:35)
[2022-01-31] MEDS ORDERED: MORPHINE PRES-FREE INJ 10 MG/10 ML VIAL As Ordered ONE (09:35)
[2022-01-31] MEDS ORDERED: OXYTOCIN INJ 10 UNITS/ML VIAL (J2590) As Ordered ONE (09:35)
[2022-01-31] MEDS ORDERED: PHENYLephrine 500MCG 5ML (100MCG/ML) SYRINGE As Ordered ONE (10:31)
[2022-01-31] MEDS ORDERED: ePHEDrine SULFATE 25 MG/5 ML(5MG/ML) SYRINGE As Ordered ONE (10:31)
[2022-01-31] MEDS ORDERED: diphenhydrAMINE 50MG/ML VIAL (J1200) As Ordered ONE (10:38)
[2022-01-31] MEDS ORDERED: oxyCODONE 5MG TAB PO PRN ×2 (11:10→11:35)
[2022-01-31] MEDS ORDERED: SIMETHICONE 80MG CHEW TAB PO PRN (11:10)
[2022-01-31] MEDS ORDERED: CARBOPROST TROMETHAMINE 250 MCG/ML AMP IM PRN (11:10)
[2022-01-31] MEDS ORDERED: TRANEXAMIC ACID INJection 1,000 MG in NS 100 ML IV PRN (11:10)
[2022-01-31] MEDS ORDERED: OXYTOCIN DRIP 30 UNITS in IV 1 EA IV PRN (11:10)
[2022-01-31] MEDS ORDERED: METHYLERGONOVINE MALEATE 0.2 MG/ML VIAL (J2210) IM PRN (11:10)
[2022-01-31] MEDS ORDERED: RHOGAM 300 MCG (1500 IU) INJ (J2790) IM SCH (11:10)
[2022-01-31] MEDS ORDERED: ONDANSETRON 4MG/2ML VIAL IV PRN ×2 (11:35)
[2022-01-31] MEDS: SLF 3 ML SYR IV SCH ×2 (11:35→19:35)
[2022-01-31] MEDS ORDERED: NALOXONE INJ 0.4MG/1ML VIAL (J2310 PER 1MG) IV PRN ×2 (11:35)
[2022-01-31] MEDS ORDERED: **NOTE PATIENT COMMENT** MISC XX SCH (11:35)
[2022-01-31] MEDS ORDERED: fentaNYL 100 MCG/2 ML INJECTION IV PRN (11:35)
[2022-01-31] MEDS ORDERED: METOCLOPRAMIDE INJ 10MG/2ML VIAL (J2765 PER 1) IV PRN (11:35)
[2022-01-31] MEDS ORDERED: diphenhydrAMINE 50MG/ML VIAL (J1200) IV PRN ×2 (11:35)
[2022-01-31] MEDS ORDERED: OXYTOCIN 30 UNITS IN 0.9% NaCl 500ML IV BAG (J2590) As Ordered ONE (11:40)
[2022-01-31] MEDS: ACETAMINOPHEN 500 MG TAB PO SCH ×3 (12:00→23:42)
[2022-01-31] MEDS: KETOROLAC 30 MG/ML 1ML VIAL IV SCH ×2 (17:31→22:52)
[2022-02-01 02:00] VITALS: BP 123/82
[2022-02-01] MEDS: SLF 3 ML SYR IV SCH (03:35)
[2022-02-01] MEDS: KETOROLAC 30 MG/ML 1ML VIAL IV SCH (05:26)
[2022-02-01] MEDS: ACETAMINOPHEN 500 MG TAB PO SCH ×3 (05:26→17:35)
[2022-02-01 06:14] VITALS: BP 126/66
[2022-02-01 06:53] LABS: MEAN CORPUSCULAR HEMOGLOBIN 29.8 pg (27.0-33.0); MEAN CORPUSCULAR HGB CONC 33.9 g/dl (32.0-36.5); MEAN CORPUSCULAR VOLUME 87.8 fl (80.0-96.0); PLATELET COUNT, AUTOMATED 182 10^3/uL (150-450); RED BLOOD COUNT 3.19 10^6/uL (4.00-5.40); WHITE BLOOD COUNT 15.6 10^3/uL (4.0-10.0)
[2022-02-01 06:59] LABS: HEMOGLOBIN 9.5 g/dl (12.0-15.5)
[2022-02-01] MEDS: PRENATAL VITAMINS CHEWABLE TABLET PO SCH (08:29)
[2022-02-01 10:00] VITALS: BP 113/63
[2022-02-01] MEDS: oxyCODONE 5MG TAB PO PRN ×2 (11:04→21:42)
[2022-02-01] MEDS: IBUPROFEN 600MG TAB PO SCH ×2 (13:00→18:46)
[2022-02-01 14:00] VITALS: BP 118/66
[2022-02-01 18:00] VITALS: BP 136/85
[2022-02-01 22:00] VITALS: BP 134/68
[2022-02-02] MEDS: ACETAMINOPHEN 500 MG TAB PO SCH ×5 (00:02→11:46)
[2022-02-02] MEDS: IBUPROFEN 600MG TAB PO SCH ×3 (00:03→08:39)
[2022-02-02 02:00] VITALS: BP 125/78
[2022-02-02 06:00] VITALS: BP 131/82
[2022-02-02] MEDS: PRENATAL VITAMINS CHEWABLE TABLET PO SCH (08:28)
[2022-02-02] MEDS ORDERED: MEASLES,MUMPS,RUBELLA VACCINE INJ (MMR-II) (90707) SC ONE (09:00)
[2022-02-02 10:00] VITALS: BP 109/70
[2022-02-02] MEDS ORDERED: OXYC-517 PO (10:31)
[2022-02-02] MEDS ORDERED: IBUP-1022 PO (10:31)
== END 2022-02-02 12:45 | disposition home or self-care (01) | DRG 540 ==
LOC: M LDI 07:00 → M OBS 12:35
PROVIDERS: ADMIT Obstetrics & Gynecology; ATTEND Obstetrics & Gynecology
PROC: 10D00Z1 Extraction of Products of Conception, Low, Open Approach (ICD-10-PCS; principal; 2022-01-31 09:30)
DX: O32.1XX0 Maternal care for breech presentation, not applicable or unspecified (principal); Z37.0 Single live birth; Z3A.39 39 weeks gestation of pregnancy

== ENCOUNTER → 2024-11-24 | Outpatient (REF) | payer OTHER ==
[~2024-11-24] MED LIST changes: +ACET-897 PO; +DOXY-441 PO; -DOXY-443 PO; +OXYC-517 PO
== END ==
LOC: M SFHCWAGY 10:18
PROVIDERS: ATTEND Advanced Practice Midwife
DX: Z32.01 Encounter for pregnancy test, result positive (principal)